=== PATIENT | female | born 1980 | race Caucasian/White ===

== ENCOUNTER → 2016-07-04 | Outpatient (CLI) | payer OTHER ==
[~2016-07-04] MED LIST: CLC100 PO; DOCO200C2 PO; MTR600X PO; OXYC5TAB PO; PRENTAB26 PO
[2016-07-04 11:45] LABS: HEMATOCRIT 38.2 % (37-47)
[2016-07-04 12:26] LABS: THYROID STIMULATING HORMONE 1.51 uIu/ml (0.300-4.500)
== END | disposition home or self-care (01) ==
LOC: C.LAB1850 10:41
PROVIDERS: ATTEND Internal Medicine
DX: R53.81 Other malaise (principal)

== ENCOUNTER → 2017-03-03 | Outpatient (CLI) | payer OTHER | END | disposition home or self-care (01) | LOC: C.PAPS 13:48 | PROVIDERS: ATTEND Obstetrics & Gynecology | DX: Z12.4 Encounter for screening for malignant neoplasm of cervix (principal) ==

== ENCOUNTER → 2017-09-08 | Outpatient (CLI) | payer OTHER ==
[2017-09-08 09:42] LABS: BASO ABS # 0.05 K/uL (0-0.2); EOS % 1.2 %; EOS ABS # 0.06 K/uL (0-0.5); HEMATOCRIT 37.6 % (37-47); HEMOGLOBIN 13.2 g/dL (12.0-16.0); IG# 0.01 K/uL (0.00-0.02); LYMPH % 24.3 %; LYMPH ABS # 1.24 K/uL (1.2-3.4); MEAN CELL VOLUME 85.3 fL (80-100); MEAN CORPUSCULAR HEMOGLOBIN 29.9 pg (25-34); MEAN CORPUSCULAR HGB CONC 35.1 g/dl (32-36); MEAN PLATELET VOLUME 10.1 fL (7.4-10.4); MONO % 6.8 %; MONO ABS # 0.35 K/uL (0.11-0.59); NEUT % 66.5 %; PLATELET COUNT 203 K/uL (130-400); RED CELL DISTRIBUTION WIDTH CV 12.1 % (11.5-14.5); RED CELL DISTRIBUTION WIDTH SD 37.6 fL (36.4-46.3); WHITE BLOOD COUNT 5.11 K/uL (4.8-10.8)
[2017-09-08 10:17] LABS: ALT/SGPT 20 U/L (12-78); BLOOD UREA NITROGEN 13 mg/dl (7-18); CALCIUM 8.8 mg/dl (8.5-10.1); CARBON DIOXIDE 27 mmol/L (21-32); CREATININE 0.68 mg/dl (0.60-1.20); GLUCOSE 77 mg/dl (70-99); POTASSIUM 3.8 mmol/L (3.5-5.1); SODIUM 137 mmol/L (136-145)
[2017-09-08 10:39] LABS: ALKALINE PHOSPHATASE 34 U/L (45-117); AST/SGOT 17 U/L (15-37); TOTAL PROTEIN 7.2 gm/dl (6.4-8.2); TRANSFERRIN 207 mg/dl (200-360)
== END | disposition home or self-care (01) ==
LOC: C.LAB1850 08:30
PROVIDERS: ATTEND Internal Medicine
DX: R53.83 Other fatigue (principal); Z86.2 Personal history of diseases of the blood and blood-forming organs and certain disorders involving the immune mechanism